=== PATIENT | female | born 1975 | race Caucasian/White ===

== ENCOUNTER 2017-06-17 22:58 | Emergency (ER) | payer SELFPAY ==
[~2017-06-17] VITALS: Ht 172.7 cm; Wt 96.7 kg
[~2017-06-17 22:58] MED LIST: GABA300C3 PO; HYDR-3533 PO; IBUP-232 PO; PROM25SU8 PO; TIZA4 PO
[2017-06-17 23:06] VITALS: BP 164/103; PULSE 107; RESP 18; TEMP 98.5; O2SAT 97
[2017-06-17] MEDS ORDERED: TIZA4CAP3 PO (23:21)
[2017-06-17] MEDS ORDERED: BIOT1CHW PO (23:21)
[2017-06-17] MEDS ORDERED: GABA300C5 PO (23:21)
[2017-06-17] MEDS ORDERED: METO50TA11 PO (23:21)
[2017-06-17] MEDS ORDERED: SODIUM CHLOR 0.9% 1000 ML INJ 1,000 ML IV SCH (23:33)
--- NOTE | 2017-06-17 23:44 | PD ---
HPI Chief Complaint: Fall Time Seen by Provider: 23:33 Travel History International Travel<30 days: No Contact w/Intl Traveler<30days: No Traveled to known affect area: No History of Present Illness HPI 41-year-old female presents to the emergency department by private transportation the care of her spouse for evaluation of head injury sustained approximately 3 hours prior to arrival to the emergency department when she had a slip and fall while in the shower. Patient reportedly slipped on soap on the shower floor while taking a shower. Patient hit her head upper back against the wall of the shower and then shower threshold. No reported loss of consciousness. Patient does not take blood thinning agents. Patient was recently diagnosed with seizure within the past 6 weeks but this was felt to be related to adverse medication interaction. Patient was reportedly seen by a neurologist. Patient was not placed on anti-seizures medications. Patient complains of headache 8/10 intensity also complains of neck pain. Patient also complains of right shoulder pain and right upper back pain. states that he did not witness her having a seizure however prior to arrival to the emergency department, while preparing to go to bed she seemed to be in a daze. Patient states that she feels okay right now except for headache pain. Patient' s had no visual disturbance and no nausea or vomiting or balance disturbance. PFSH Past Medical History Narrative Medical GERD left hand neuropathy post fracture hypertension kidney stones seizure ovarian cyst tubal ligation hysterectomy right arm surgery cholecystectomy appendectomy tonsillectomy knee surgery; no tobacco use; nursing notes reviewed Cancer: No Cardiovascular Problems: No Diabetes: No Diminished Hearing: No Endocrine: No Gastrointestinal Disorders: Yes (ACID REFLUX) Genitourinary: No Hepatitis: No Hiatal Hernia: No Hypertension: Yes Immune Disorder: No Kidney Stones: Yes Musculoskeletal: Yes (BURNING & THROBING LEFT HAND) Neurologic: Yes (neuropathy left hand post fracture) Psychiatric: No Respiratory: No Immunizations Current: Yes Seizures: Yes Thyroid Disease: No Tetanus Vaccination: > 5 Years Influenza Vaccination: No ?: Not Tubal Ligation: Yes Past Surgical History Abdominal Surgery: Yes (LAP CHOLECY; APPY) AICD: No Appendectomy: Yes Body Medical Devices: RIGHT ARM INT FIXATION Cardiac Surgery: No Cholecystectomy: Yes Ear Surgery: No Eye Surgery: No Gynecologic Surgery: Yes (BILATERAL TUBAL LIGATION) Hysterectomy: Yes Joint Replacement: No Oral Surgery: No Pacemaker: No Thoracic Surgery: No Tonsillectomy: Yes Other Surgery: Yes (RIGHT KNEE SURGERY-1T 12 YEARS OF AGE) Social History Alcohol Use: No Tobacco Use: No (QUIT 2008) Substance Use: No Allergies-Medications (Allergen,Severity, Reaction): Coded Allergies: Sulfa (Sulfonamide Antibiotics) (Unverified Allergy, Intermediate, RASH, ) doxycycline (Unverified Allergy, Intermediate, RASH, 06/17/17) minocycline (Unverified Allergy, Intermediate, RASH, 06/17/17) morphine (Unverified Allergy, Intermediate, RASH, 06/17/17) tigecycline (Unverified Allergy, Intermediate, RASH, 06/17/17) Reported Meds & Prescriptions Reported Meds & Active Scripts Active Phenergan (Promethazine HCl) 25 Mg Tablet 25 Mg PO Q6H PRN Reported Hair Skin & Nails (Biotin W/ Vitamins C & E) 1,250-7.5-7.5 Mcg-Mg-Unit Chew 1 Tab PO DAILY Gabapentin 300 Mg Cap 300 Mg PO TID Metoprolol Succinate ER 24 HR (Metoprolol Succinate) 50 Mg Tab 50 Mg PO DAILY Tizanidine (Tizanidine HCl) 4 Mg Cap 4 Mg PO HS Review of Systems Except as stated in HPI: all other systems reviewed are Neg General / Constitutional: No: Fever, Chills Eyes: No: Diploplia, Blurred Vision, Photophobia, Visual changes HENT: Positive: Headaches, Neck Pain, No: Vertigo, Lightheadedness Cardiovascular: No: Chest Pain or Discomfort Respiratory: No: Shortness of Breath Gastrointestinal: No: Nausea, Vomiting, Abdominal Pain Genitourinary: No: Dysuria, Flank Pain Musculoskeletal: Positive: Myalgias, Arthralgias, Pain (upper back right shoulder) Skin: No Rash Neurologic: Positive: Dizziness, No: Weakness, Syncope, Focal Abnormalities, Coordination Problem Psychiatric: No: Anxiety Endocrine: No: Heat Intolerance Hematologic/Lymphatic: No: Easy Bruising Physical Exam Narrative GENERAL: Well-developed well-nourished female in no acute distress no respiratory distress; gcs 15 SKIN: Warm and dry. HEAD: Atraumatic. Normocephalic. Scalp tenderness without soft tissue swelling abrasion laceration or bony abnormalities. EYES: Pupils equal and round. Extraocular muscles intact. No scleral icterus. No injection or drainage. ENT: No nasal bleeding or discharge. Mucous membranes pink and moist. Airway is patent. No tongue or mucosal trauma. No hemotympanum. NECK: Trachea midline. No JVD. Mild tenderness to palpation along the right lateral aspect of the cervical spine soft tissue no bony step-off. No midline tenderness. CARDIOVASCULAR: Increased Regular rate and rhythm. Chest wall: Nontender to palpation. RESPIRATORY: No accessory muscle use. Clear to auscultation. Breath sounds equal bilaterally. GASTROINTESTINAL: Abdomen soft, non-tender, nondistended. Hepatic and splenic margins not palpable. MUSCULOSKELETAL: Extremities without clubbing, cyanosis, or edema. No obvious deformities. Right shoulder tenderness with small area of ecchymosis posterior aspect distally extremity is neurovascular tendon intact. NEUROLOGICAL: Awake and alert. gcs 15. No obvious cranial nerve deficits. Motor grossly within normal limits. Five out of 5 muscle strength in the arms and legs. Normal speech. PSYCHIATRIC: Appropriate mood and affect; insight and judgment normal. Data Data Last Documented VS Vital Signs Date Time Temp Pulse Resp B/P (MAP) Pulse Ox O2 Delivery O2 Flow Rate FiO2 06/18/17 01:59 72 16 140/82 (101) 98 06/18/17 01:00 Room Air 06/17/17 23:06 98.5 Orders Orders Basic Metabolic Panel (Bmp) (06/17/17 23:33) Complete Blood Count With Diff (06/17/17 23:33) Prothrombin Time / Inr (Pt) (06/17/17 23:33) Act Partial Throm Time (Ptt) (06/17/17 23:33) Type And Screen (06/17/17 23:33) Chest, Single Ap (06/17/17 23:33) Spine, Lumbar - Ltd (Ap & Lat) (06/17/17 23:33) Spine, Thoracic-Ap/Lat/Sw(3vw) (06/17/17 23:33) Ct Brain W/O Iv Contrast(Rout) (06/17/17 23:33) Ct Cerv Spine W/O Contrast (06/17/17 23:33) Apply Cervical Collar (06/17/17 23:33) Blood Glucose (06/17/17 23:33) Iv Access Insert/Monitor (06/17/17 23:33) Ecg Monitoring (06/17/17 23:33) Oximetry (06/17/17 23:33) Sodium Chlor 0.9% 1000 Ml Inj (Ns 1000 M (06/17/17 23:33) Sodium Chloride 0.9% Flush (Ns Flush) (06/17/17 23:45) Shoulder, Complete (>2vws) (06/17/17 ) ^ Seizure Precautions (06/17/17 23:44) Ketorolac Inj (Toradol Inj) (06/18/17 00:30) Ondansetron Inj (Zofran Inj) (06/18/17 00:30) Hydromorphone Pf Inj (Dilaudid Pf Inj) (06/18/17 00:30) Potassium Chloride (Kcl) (06/18/17 01:15) Labs Laboratory Tests Test 06/17/17 23:40 White Blood Count 8.8 TH/MM3 Red Blood Count 4.74 MIL/MM3 Hemoglobin 13.8 GM/DL Hematocrit 41.1 % Mean Corpuscular Volume 86.8 FL Mean Corpuscular Hemoglobin 29.2 PG Mean Corpuscular Hemoglobin Concent 33.7 % Red Cell Distribution Width 12.0 % Platelet Count 380 TH/MM3 Mean Platelet Volume 8.1 FL Neutrophils (%) (Auto) 64.3 % Lymphocytes (%) (Auto) 26.4 % Monocytes (%) (Auto) 5.9 % Eosinophils (%) (Auto) 2.4 % Basophils (%) (Auto) 1.0 % Neutrophils # (Auto) 5.7 TH/MM3 Lymphocytes # (Auto) 2.3 TH/MM3 Monocytes # (Auto) 0.5 TH/MM3 Eosinophils # (Auto) 0.2 TH/MM3 Basophils # (Auto) 0.1 TH/MM3 CBC Comment DIFF FINAL Differential Comment Prothrombin Time 10.6 SEC Prothromb Time International Ratio 1.0 RATIO Activated Partial Thromboplast Time 25.8 SEC Blood Urea Nitrogen 11 MG/DL Creatinine 0.78 MG/DL Random Glucose 110 MG/DL Calcium Level 9.0 MG/DL Sodium Level 139 MEQ/L Potassium Level 3.4 MEQ/L Chloride Level 102 MEQ/L Carbon Dioxide Level 28.7 MEQ/L Anion Gap 8 MEQ/L Estimat Glomerular Filtration Rate 81 ML/MIN MDM Medical Decision Making Medical Screen Exam Complete: Yes Emergency Medical Condition: Yes Medical Record Reviewed: Yes Interpretation(s) Last Impressions Thoracic Spine X-Ray 06/17/172332 Signed Impressions: Service Date/Time: Sunday, June 18, 2017 00:04 - CONCLUSION: 1. No acute abnormality. Ashok Hickey Jr., MD Lumbar Spine X-Ray 06/17/172332 Signed Impressions: Service Date/Time: Sunday, June 18, 2017 00:07 - CONCLUSION: 1. No acute abnormality. Ashok Hickey Jr., MD Head CT 06/17/172332 Signed Impressions: Service Date/Time: Saturday, June 17, 2017 23:50 - CONCLUSION: Normal examination. Ashok Hickey Jr., MD Chest X-Ray 06/17/172332 Signed Impressions: Service Date/Time: Saturday, June 17, 2017 23:57 - CONCLUSION: Normal examination. Ashok Hickey Jr., MD Cervical Spine CT 06/17/172332 Signed Impressions: Service Date/Time: Saturday, June 17, 2017 23:50 - CONCLUSION: 1. No acute abnormality. 2. Mild degenerative changes as detailed above. Ashok Hickey Jr., MD Shoulder X-Ray 06/17/17 0000 Signed Impressions: Service Date/Time: Sunday, June 18, 2017 00:12 - CONCLUSION: Unremarkable examination of the right shoulder. Ashok Hickey Jr., MD CBC & BMP Diagram 06/17/17 23:40 Calcium Level 9.0 Vital Signs Date Time Temp Pulse Resp B/P (MAP) Pulse Ox O2 Delivery O2 Flow Rate FiO2 06/18/17 00:28 105 16 149/99 (116) 97 Room Air 06/17/17 23:06 98.5 107 18 164/103 (123) 97 Differential Diagnosis Closed head injury, ICH, cervical spine sprain strain fracture cord injury, shoulder contusion, fracture, arrhythmia, seizure Narrative Course Cervical collar applied; patient placed on curtain framer; specimens collected and sent for resulting; imaging studies ordered CT cervical spine reveals no acute bony abnormality mild chronic changes; reading per radiologist; cervical collar removed by sd CT brain noncontrast reveals no acute cranial abnormality no bleed no skull fracture Patient complaining of perforated the skeletal pain given a one-time dose of Toradol 30 mg IV, Zofran 4 mg IV, Dilaudid 0.5 mg IV as well as fluid hydration CBC chemistry and coagulation studies are found to be in normal range except for mild hypokalemia 3.4 patient given oral replacement of potassium No generalized tonic-clonic seizure activity identified or witnessed in the emergency Department or at time of the injury. At this point time patient is stable for outpatient management and follow-up with her neurologist. Diagnosis Primary Impression: Minor closed head injury Additional Impressions: Cervical strain, acute Qualified Codes: S16.1XXA - Strain of muscle, fascia and tendon at neck level , initial encounter Multiple contusions Referrals: Primary Care Physician 1 day Patient Instructions: General Instructions, Narcotic given in the ED Additional Instructions: Increase fluid hydration Use ice intermittently to areas of soft tissue injury for the next 12-24 hours then moist heat for comfort Follow-up with your primary care provider and neurologist call office name to schedule follow-up appointment Return to the emergency department for any concerns or change in condition Follow head injury precautions 24 hours No driving or swimming or handling heavy equipment May take medication for nausea vomiting as needed May use as tolerated ibuprofen 800 mg as often as every 8 hours for pain associated with inflammation do not take this medication any more frequently than every 8 hours and do not take for greater than 2-3 days consecutively Med/Other Pt SpecificInfo: Prescription(s) given Scripts Promethazine (Phenergan) 25 Mg Tablet 25 MG PO Q6H Y for NAUSEA OR VOMITING, #7 TAB 0 Refills Prov: Prabha Tovar MD 06/18/17 Disposition: 01 DISCHARGE HOME Condition: Stable Prabha Tovar MD Jun 17, 2017 23:44
[2017-06-17] MEDS ORDERED: SODIUM CHLORIDE 0.9% FLUSH 10 ML FLUSH IVF PRN (23:45)
[2017-06-17 23:55] LABS: AUTOMATED NEUTROPHIL # 5.7 TH/MM3 (1.8-7.7); BASOPHIL # 0.1 TH/MM3 (0-0.2); EOSINOPHIL # 0.2 TH/MM3 (0-0.4); EOSINOPHIL % 2.4 % (0.0-4.0); HEMATOCRIT 41.1 % (35.0-46.0); HEMO FLAGS DIFF FINAL; LYMPH % 26.4 % (9.0-44.0); LYMPHOCYTE # 2.3 TH/MM3 (1.0-4.8); MEAN CELL VOLUME 86.8 FL (80.0-100.0); MEAN CORPUSCULAR HEMOGLOBIN 29.2 PG (27.0-34.0); MEAN CORPUSCULAR HGB CONC 33.7 % (32.0-36.0); MONO % 5.9 % (0.0-8.0); NEUT % 64.3 % (16.0-70.0); PLATELET COUNT 380 TH/MM3 (150-450); RED BLOOD COUNT 4.74 MIL/MM3 (4.00-5.30); WHITE BLOOD COUNT 8.8 TH/MM3 (4.0-11.0)
[2017-06-18 00:04] LABS: POTASSIUM 3.4 MEQ/L (3.5-5.1)
[2017-06-18 00:07] LABS: BICARBONATE 28.7 MEQ/L (21.0-32.0)
[2017-06-18 00:08] LABS: APTT (PATIENT) 25.8 SEC (24.3-30.1); PROTHROMBIN TIME - PATIENT 10.6 SEC (9.8-11.6)
--- NOTE | 2017-06-18 00:16 | RADRPT ---
EXAM DATE/TIME: 06/17/2017 23:50 [facility] COMPARISON: No previous studies available for comparison. INDICATIONS : Trauma. Fall. Cephalgia. Possible seizure. RADIATION DOSE: 58.92 CTDIvol (mGy) MEDICAL HISTORY : Seizures. SURGICAL HISTORY : Hysterectomy. ENCOUNTER: Initial ACUITY: 1 day PAIN SCALE: 8/10 LOCATION: Bilateral occipital TECHNIQUE: Multiple contiguous axial images were obtained of the head. Using automated exposure control and adj ustment of the mA and/or kV according to patient size, radiation dose was kept as low as reasonably a chievable to obtain optimal diagnostic quality images. DICOM format image data is available electro nically for review and comparison. FINDINGS: CEREBRUM: The ventricles are normal for age. No evidence of midline shift, mass lesion, hemorrhage or acute in farction. No extra-axial fluid collections are seen. POSTERIOR FOSSA: The cerebellum and brainstem are intact. The 4th ventricle is midline. The cerebellopontine angle i s unremarkable. EXTRACRANIAL: The visualized portion of the orbits is intact. SKULL: The calvaria is intact. No evidence of skull fracture. CONCLUSION: Normal examination. Ashok Hickey Jr., MD on June 18, 2017 at 0:14 Board Certified Radiologist. This report was verified electronically.
--- NOTE | 2017-06-18 00:18 | RADRPT ---
EXAM DATE/TIME: 06/17/2017 23:50 [facility] COMPARISON: No previous studies available for comparison. INDICATIONS : Trauma. Neck pain post fall. RADIATION DOSE: 26.29 CTDIvol (mGy) MEDICAL HISTORY : Seizures. SURGICAL HISTORY : Hysterectomy. ENCOUNTER: Initial ACUITY: 1 day PAIN SCALE: 8/10 LOCATION: Bilateral neck TECHNIQUE: Volumetric scanning of the cervical spine was performed. Multiplanar reconstructions in the sagittal, coronal and oblique axial planes were performed. Using automated exposure control and adjustment o f the mA and/or kV according to patient size, radiation dose was kept as low as reasonably achievable to obtain optimal diagnostic quality images. DICOM format image data is available electronically f or review and comparison. FINDINGS: VERTEBRAE: Normal vertebral body height. ALIGNMENT: No evidence of subluxation. C2-C3: The bony spinal canal is normal in size. No evidence of disc bulge or herniation. Left-sided bony un covertebral hypertrophy generates mild narrowing of the left neural foramen. The right is patent. C3-C4: The bony spinal canal is normal in size. No evidence of disc bulge or herniation. The neural forami na are bilaterally patent. C4-C5: There is a mild central bulge. No central canal stenosis. Neural foramina are patent bilaterally. C5-C6: There is a broad-based disc bulge slightly eccentric to the right without central canal stenosis. Kenny ral foramina are patent bilaterally. C6-C7: A minimal broad based disc bulge without central canal stenosis. Neural foramina are patent. C7-T1: The bony spinal canal is normal in size. No evidence of disc bulge or herniation. The neural forami na are bilaterally patent. CONCLUSION: 1. No acute abnormality. 2. Mild degenerative changes as detailed above. Ashok Hickey Jr., MD on June 18, 2017 at 0:14 Board Certified Radiologist. This report was verified electronically.
[2017-06-18 00:28] VITALS: BP 149/99; PULSE 105; RESP 16; O2SAT 97
[2017-06-18] MEDS ORDERED: HYDROmorphone HCL PF 1 MG/ML VIAL IV PUSH ONE (00:30)
[2017-06-18] MEDS ORDERED: ONDANSETRON HCL 4 MG/2 ML VIAL IV PUSH ONE (00:30)
[2017-06-18] MEDS ORDERED: KETOROLAC TROMETHAMINE 30 MG/ML (IVP) VIAL IV PUSH ONE (00:30)
--- NOTE | 2017-06-18 00:44 | RADRPT ---
EXAM DATE/TIME: 06/17/2017 23:57 [facility] COMPARISON: No previous studies available for comparison. INDICATIONS : Chest pain after fall in the shower. MEDICAL HISTORY : None. SURGICAL HISTORY : None. ENCOUNTER: Initial ACUITY: 1 day PAIN SCORE: 4/10 LOCATION: Bilateral chest FINDINGS: A single view of the chest demonstrates the lungs to be symmetrically aerated without evidence of mas s, infiltrate or effusion. The cardiomediastinal contours are unremarkable. Osseous structures are intact. CONCLUSION: Normal examination. Ashok Hickey Jr., MD on June 18, 2017 at 0:43 Board Certified Radiologist. This report was verified electronically.
--- NOTE | 2017-06-18 00:45 | RADRPT ---
EXAM DATE/TIME: 06/18/2017 00:04 [facility] COMPARISON: No previous studies available for comparison. INDICATIONS : Upper back pain after fall in the shower. MEDICAL HISTORY : None. SURGICAL HISTORY : None. ENCOUNTER: Initial ACUITY: 1 day PAIN SCORE: 8/10 LOCATION: Bilateral upper back. FINDINGS: Mild scoliotic curvature. Vertebral body height is maintained. No evidence of fracture or subluxatio n. Pedicles are intact at all levels. The paravertebral reflections are not thickened. CONCLUSION: 1. No acute abnormality. Ashok Hickey Jr., MD on June 18, 2017 at 0:43 Board Certified Radiologist. This report was verified electronically.
--- NOTE | 2017-06-18 00:46 | RADRPT ---
EXAM DATE/TIME: 06/18/2017 00:07 [facility] COMPARISON: No previous studies available for comparison. INDICATIONS : Lower back pain after fall in the shower. MEDICAL HISTORY : None. SURGICAL HISTORY : None. ENCOUNTER: Initial ACUITY: 1 day PAIN SCORE: 8/10 LOCATION: Bilateral lower back. FINDINGS: Two view examination was performed. There are five non-rib bearing vertebral bodies. Mild scoliotic curvature without evidence of subluxation. Disc space narrowing without osteophyte production at L5-S 1. The pedicles are intact. Bony mineralization is normal. No fracture is identified. CONCLUSION: 1. No acute abnormality. Ashok Hickey Jr., MD on June 18, 2017 at 0:44 Board Certified Radiologist. This report was verified electronically.
--- NOTE | 2017-06-18 00:46 | RADRPT ---
EXAM DATE/TIME: 06/18/2017 00:12 [facility] COMPARISON: No previous studies available for comparison. INDICATIONS : Right shoulder pain after fall in the shower. MEDICAL HISTORY : None. SURGICAL HISTORY : None. ENCOUNTER: Initial ACUITY: 1 day PAIN SCORE: 7/10 LOCATION: Right posterior shoulder FINDINGS: Multiple view examination of the right shoulder demonstrates no evidence of fracture or dislocation. The glenohumeral and acromioclavicular joints are maintained. There is normal range of motion betwe en internal and external rotation. Bony mineralization is normal. CONCLUSION: Unremarkable examination of the right shoulder. Ashok Hickey Jr., MD on June 18, 2017 at 0:45 Board Certified Radiologist. This report was verified electronically.
[2017-06-18 01:00] VITALS: BP 151/85; PULSE 86; RESP 16; O2SAT 95
[2017-06-18] MEDS ORDERED: POTASSIUM CHLORIDE 20 MEQ CONTROLLED RELEASE TAB PO ONE (01:15)
[2017-06-18] MEDS ORDERED: PROM25TA10 PO (01:23)
[2017-06-18 01:59] VITALS: BP 140/82
== END 2017-06-18 02:03 | disposition home or self-care (01) ==
LOC: PHED 22:58
DX: S09.90XA Unspecified injury of head, initial encounter (principal); S16.1XXA Strain of muscle, fascia and tendon at neck level, initial encounter; S40.011A Contusion of right shoulder, initial encounter; M25.511 Pain in right shoulder; M54.6 Pain in thoracic spine; I10 Essential (primary) hypertension; W18.2XXA Fall in (into) shower or empty bathtub, initial encounter; Y93.E1 Activity, personal bathing and showering; Z87.891 Personal history of nicotine dependence
CPT/HCPCS: 70450; 71010; 72072; 72100; 72125; 73030; 80048; 85025; 85610; 85730; 86850; 86900; 86901; 96361; 96374; 96375; 99285; J1170; J1885; J2405; J7030